=== PATIENT | female | born 1945 | race Caucasian/White ===

== ENCOUNTER 2018-11-23 17:54 | Emergency (ER) | payer MEDICARE, BC ==
[~2018-11-23] VITALS: Ht 160 cm; Wt 63.6 kg
[2018-11-23 17:57] VITALS: Ht 160 cm; Wt 63.6 kg
[2018-11-23] MEDS ORDERED: LEVOXYL125 MCG PO (18:03)
[2018-11-23] MEDS ORDERED: K-TAB10 MEQ PO (18:05)
[2018-11-23] MEDS ORDERED: EVISTA60 MG PO (18:05)
[2018-11-23] MEDS ORDERED: TRIAMTERENE-HCT1 TA2 PO (18:05)
[2018-11-23] MEDS ORDERED: NORVASC5 MG PO (18:05)
[2018-11-23] MEDS ORDERED: TOPROL XL25 MG PO (18:06)
[2018-11-23] MEDS ORDERED: SYMBICORT 80-10.2 GM INH (18:06)
[2018-11-23] MEDS ORDERED: VITAMIN D2000 UNIT PO (18:06)
[2018-11-23] MEDS ORDERED: HYDROCODON-ACE1 EAC2 PO (19:00)
[2018-11-23 19:17] VITALS: BP 136/81
== END 2018-11-23 19:17 | disposition home or self-care (01) ==
LOC: D.ER 17:54
DX: S52.501A Unspecified fracture of the lower end of right radius, initial encounter for closed fracture (principal); W18.31XA Fall on same level due to stepping on an object, initial encounter; Y93.89 Activity, other specified; Y92.019 Unspecified place in single-family (private) house as the place of occurrence of the external cause